=== PATIENT | male | born 1990 | race Caucasian/White ===

== ENCOUNTER 2017-10-12 18:46 | Emergency (ER) | payer BC ==
[2017-10-12] MEDS ORDERED: NORCO 5/325 MG PO ONE ×2 (19:26)
[2017-10-12] MEDS ORDERED: Rocephin 1000 MG INJ IM ONE (19:26)
--- NOTE | 2017-10-12 19:26 | ERPHSYRPT ---
- History of Present Illness Time Seen by Provider: 10/12/17 19:06 Source: patient, family (DAD) Exam Limitations: no limitations Patient Subjective Stated Complaint: pt here for swelling to left jaw, has broken tooth and has seen dentist and is on amoxicillin and states pain and swelling worse, Triage Nursing Assessment: pt alert, has swelling to left lower jaw and gum . Physician History: FOR THE PAST WEEK PT HAS HAD LEFT LOWER MOLAR PAIN; FOR THE PAST 2 DAYS LEFT JAW SWELLING AND NAUSEA; TODAY HEADACHE. PT DENIES VOMITING, CHEST PAIN, FEVER, CHILLS. Allergies/Adverse Reactions: No Known Drug Allergies Allergy (Verified 10/12/17 18:49) Home Medications: No Home Meds [No Home Meds] 0 03/08/13 [History] Amoxicillin 500 mg Cap [Amoxil 500 mg] 500 mg TID 10/12/17 [History] Hx Tetanus, Diphtheria Vaccination/Date Given: Yes Hx Influenza Vaccination/Date Given: No Hx Pneumococcal Vaccination/Date Given: No Immunizations Up to Date: Yes - Review of Systems Constitutional: No Fever, No Chills Ears, Nose, & Throat: Other (LEFT JAW SWELLING/PAIN) Cardiac: No Chest Pain Abdominal/Gastrointestinal: Nausea, No Vomiting Neurological: Headache All Other Systems: Reviewed and Negative - Past Medical History Pertinent Past Medical History: No Neurological History: No Pertinent History ENT History: No Pertinent History Cardiac History: No Pertinent History Respiratory History: No Pertinent History Endocrine Medical History: No Pertinent History Musculoskeletal History: No Pertinent History GI Medical History: Crohns Disease History: No Pertinent History Psycho-Social History: No Pertinent History Male Reproductive Disorders: No Pertinent History - Past Surgical History Past Surgical History: No - Social History Smoking Status: Never smoker Exposure to second hand smoke: No Drug Use: none Patient Lives Alone: No - Nursing Vital Signs Nursing Vital Signs: Initial Vital Signs Temperature 99.7 F 10/12/17 18:56 Pulse Rate 132 H 10/12/17 18:56 Respiratory Rate 18 10/12/17 18:56 Blood Pressure 151/98 10/12/17 18:56 O2 Sat by Pulse Oximetry 100 10/12/17 18:56 Pain Scale Pain Intensity 10 - Physical Exam General Appearance: alert Eye Exam: PERRL/EOMI Ears, Nose, Throat Exam: TMs normal, pharynx normal, other (A LEFT MANDIBULAR MOLAR HAS SURROUNDING MILDLY EDEMATOUS, ERYTHEMATOUS AND TENDER GUM ) Neck Exam: normal inspection Respiratory Exam: lungs clear Cardiovascular Exam: normal heart sounds Gastrointestinal/Abdomen Exam: soft, normal bowel sounds Back Exam: normal range of motion Extremity Exam: normal inspection, No pedal edema Neurologic Exam: alert, cooperative Skin Exam: warm, dry SpO2 Interpretation: normal SpO2: 100 Oxygen Delivery: Room Air - Course Nursing assessment & vital signs reviewed: Yes Ordered Tests: Medication Summary Generic Name Dose Route Start Last Admin Trade Name Freq PRN Reason Stop Dose Admin Hydrocodone Bitart/Acetaminophen 2 tab 10/12/17 19:26 [place] 5/325 Mg PO 10/12/17 19:27 STAT ONE Ceftriaxone Sodium 1,000 mg 10/12/17 19:26 Rocephin 1000 Mg Inj IM 10/12/17 19:27 STAT ONE - Departure Time of Disposition: 19:27 Departure Disposition: Home Clinical Impression: LEFT TOOTH ABSCESS Condition: Stable Critical Care Time: No Referrals: JOYCE GILLETTE [Primary Care Provider] - Instructions: Tooth Abscess (DC) Additional Instructions: FOLLOW UP WITH PRIVATE DOCTOR & DENTIST TOMORROW. Prescriptions: Naproxen [Naprosyn] 500 mg PO Q12H PRN PRN #20 tablet PRN Reason: Pain Cephalexin Monohydrate [Keflex] 500 mg PO QID #30 capsule
[2017-10-12] MEDS ORDERED: XYLOCAINE 1% HCL 20 ML MDV ONE (19:31)
[2017-10-12] MEDS ORDERED: Rocephin 1000 MG INJ ONE (19:31)
[2017-10-12] MEDS ORDERED: NORCO 5/325 MG ONE (19:31)
[2017-10-12 20:08] VITALS: BP 132/91; PULSE 128; O2SAT 96
== END 2017-10-12 20:07 | disposition home or self-care (01) ==
LOC: ED 18:46
DX: K04.7 Periapical abscess without sinus (principal)
CPT/HCPCS: 99284; J0696; A9270-GY